=== PATIENT | male | born 1965 | race Caucasian/White ===

== ENCOUNTER 2019-11-18 18:48 | Emergency (ER) | payer OTHER ==
[~2019-11-18] VITALS: Ht 172.7 cm; Wt 92.5 kg
[2019-11-18 18:58] VITALS: Ht 172.7 cm; Wt 92.5 kg
[2019-11-18 21:00] LABS: BASOPHIL % 0.3 % (0-2); PLATELET COUNT 283 x10^3mcL (130-400); RED CELL DISTRIBUTION WIDTH 14.2 % (11.5-14.5)
[2019-11-18 21:09] LABS: CARBON DIOXIDE 24.9 mmol/L (21-32); CREATININE SERUM 1.5 mg/dL (0.7-1.3); POTASSIUM SERUM 4.5 mmol/L (3.5-5.1)
[2019-11-18 21:14] LABS: BILIRUBIN TOTAL 0.35 mg/dL (0.20-1.00); TOTAL PROTEIN, SERUM 7.4 g/dL (6.4-8.2)
[2019-11-18 21:15] VITALS: BP 148/89
[2019-11-18 21:15] LABS: CHOLESTEROL/HDL RATIO 4.4; T3 TOTAL 1.2 ng/mL
[2019-11-18 22:01] LABS: FREE T4 1.01 ng/dL (0.76-1.46); FREE THYROXINE INDEX 2.4 ug/dL (1.4-4.5); T4(THYROXINE) 6.6 ug/dL (4.7-13.3)
[2019-11-18 22:14] LABS: AMPHETAMINE QUAL UR NONE DETECTED (See below)
== END 2019-11-18 21:53 | disposition home or self-care (01) ==
LOC: ED 18:48
PROVIDERS: Specialist
DX: N13.2 Hydronephrosis with renal and ureteral calculous obstruction (principal)
CPT/HCPCS: 83880; 84439; J1885; J2405; J7030; Q0092